=== PATIENT | male | born 1940 | race Caucasian/White ===

== ENCOUNTER 2020-11-11 14:09 | Emergency (ER) | payer OTHER, BC ==
[2020-11-11 15:03] LABS: Absolute Lymphocytes (CBC) 1.3 K/uL (0.7-4.9); Basophils % 0.7 % (0-1.3); Hematocrit 40.1 % (39.6-49.0); Lymphocytes % 14.9 % (15.3-44.8); MPV 9.3 fL (7.6-11.3); RBC Red Blood Cell Count 4.11 M/uL (4.33-5.43)
--- NOTE | 2020-11-11 15:05 | RAD REPORT ---
EXAM DESCRIPTION: RAD - Hip Left 2 View - 11/11/2020 2:51 pm CLINICAL HISTORY: PAIN, trip and fall COMPARISON: Pelvis dated 11/11/2020 FINDINGS: AP and cross-table lateral views of the left hip joint were obtained. Transverse fracture of the left femoral neck is present. Minimal impaction is seen along the medial f racture plane. Pathologic etiology is not suspected. Shaft is rotated superimposing the greater troch anter over the fracture plane. This limits ability to fully assess the lateral margin of the fracture . Intertrochanteric involvement is not likely. No AVN or focal femoral head abnormality. Lesser trochanter remains intact to the femur. Degenerative change present along superior acetabular rim. SI joint degenerative changes are present. No soft tissue abnormality. IMPRESSION: Transverse fracture left femoral neck as detailed.
--- NOTE | 2020-11-11 15:06 | RAD REPORT ---
EXAM DESCRIPTION: RAD - Pelvis - 11/11/2020 2:50 pm CLINICAL HISTORY: TRAUMA, trip and fall, pelvic and left hip pain COMPARISON: Left hip same date TECHNIQUE: AP imaging of the pelvis was obtained. FINDINGS: Lower lumbar degenerative change present without suspicion for acute lumbar compression fr acture. SI joint degenerative change present without sacral ala fractures seen. Sacral ala detail is limited by overlapping bowel. Dense arterial tree calcifications are present. Fracture of the bony pe lvis is not identifiable. Left femoral neck fracture is separately detailed. Proximal right femur sally ws no acute finding. No suspicious soft tissue finding. IMPRESSION: Left femoral neck fracture is present separately detailed on left hip report. No fracture of the bony pelvis identified.
[2020-11-11 15:23] LABS: Protime INR 0.98
[2020-11-11 15:34] LABS: Potassium 5.3 mmol/L (3.5-5.1)
--- NOTE | 2020-11-11 16:13 | EDPHYS ---
Physician Documentation [facility] Name: Michael Lozano Age: 80 yrs Sex: Male : 1940 Arrival Date: 11/11/2020 Time: 14:13 Bed 2 Private MD: ED Physician Jermaine Dubois HPI: 11/11 16:12 This 80 yrs old Male presents to ER via EMS with complaints of Hip Injury. jr8 14:55 The patient or guardian reports decreased range of motion, an injury, pain. that jr8 occurred outdoors, sustained from a fall, There is no obvious deformity, The patient is not able to ambulate. The complaints affect the L hip. Patient reports tripping over a concrete barrier and falling. Denies LOC but takes 3 baby ASA a day. NO internal rotation or deformity noted. Patient report minor point tenderness. . Historical: - Allergies: 14:19 No Known Allergies; sv - Immunization history:: Adult Immunizations up to date. - Social history:: Smoking status: . - Immunization history: Last tetanus immunization: unknown. ROS: 14:57 Cardiovascular: Negative for chest pain, palpitations, and edema, Respiratory: Negative jr8 for shortness of breath, cough, wheezing, and pleuritic chest pain, Abdomen/GI: Negative for abdominal pain, nausea, vomiting, diarrhea, and constipation, Back: Negative for injury and pain, Neuro: Negative for headache, weakness, numbness, tingling, and seizure. 14:57 MS/extremity: Positive for pain, tenderness, of the L hip. 16:12 Neck: Negative for injury, pain, and swelling. jr8 Exam: 14:58 Chest/axilla: Normal chest wall appearance and motion. Nontender with no deformity. jr8 No lesions are appreciated. Cardiovascular: Regular rate and rhythm with a normal S1 and S2. No gallops, murmurs, or rubs. Normal PMI, no JVD. No pulse deficits. Respiratory: Lungs have equal breath sounds bilaterally, clear to auscultation and percussion. No rales, rhonchi or wheezes noted. No increased work of breathing, no retractions or nasal flaring. Abdomen/GI: Soft, non-tender, with normal bowel sounds. No distension or tympany. No guarding or rebound. No evidence of tenderness throughout. Neuro: Awake and alert, GCS 15, oriented to person, place, time, and situation. Cranial nerves II-XII grossly intact. Motor strength 5/5 in all extremities. Sensory grossly intact. Cerebellar exam normal. Normal gait. 14:58 Musculoskeletal/extremity: Extremities: noted in the L hip: pain, ROM: limited active range of motion due to pain, in the left leg, Circulation is intact in all extremities. Sensation intact. 16:12 Neck: Trachea midline, no thyromegaly or masses palpated, and no cervical jr8 lymphadenopathy. Supple, full range of motion without nuchal rigidity, or vertebral point tenderness. No Meningismus. Back: No spinal tenderness. No costovertebral tenderness. Full range of motion. Skin: Warm, dry with normal turgor. Normal color with no rashes, no lesions, and no evidence of cellulitis. Vital Signs: 14:07 BP 133 / 80; Pulse 56; Resp 16; Temp 98; Pulse Ox 98% ; Pain 5/10; sv 15:02 BP 148 / 70; Pulse 63; Resp 16; Temp 98; Pulse Ox 98% ; sv 16:00 BP 152 / 60; Pulse 58; Resp 16; Pulse Ox 97% ; sv 16:30 BP 132 / 67; Pulse 52; Resp 16; Pulse Ox 96% ; sv 17:15 BP 141 / 65; Pulse 53; Resp 18; Pulse Ox 96% ; sv 18:00 BP 142 / 70; Pulse 58; Resp 16; Pulse Ox 99% ; sv 18:40 BP 152 / 59; Pulse 55; Resp 18; Pulse Ox 99% ; sv Hossein Coma Score: 14:07 Eye Response: spontaneous(4). Verbal Response: oriented(5). Motor Response: obeys sv commands(6). Total: 15. Trauma Score (Adult): 14:07 Eye Response: spontaneous(1); Verbal Response: oriented(1); Motor Response: obeys sv commands(2); Systolic BP: > 89 mm Hg(4); Respiratory Rate: 10 to 29 per min(4); [place] Score: 15; Trauma Score: 12 15:02 Eye Response: spontaneous(1); Verbal Response: oriented(1); Motor Response: obeys sv commands(2); Systolic BP: > 89 mm Hg(4); Respiratory Rate: 10 to 29 per min(4); [place] Score: 15; Trauma Score: 12 16:00 Eye Response: spontaneous(1); Verbal Response: oriented(1); Motor Response: obeys sv commands(2); Systolic BP: > 89 mm Hg(4); Respiratory Rate: 10 to 29 per min(4); [place] Score: 15; Trauma Score: 12 16:30 Eye Response: spontaneous(1); Verbal Response: oriented(1); Motor Response: obeys sv commands(2); Systolic BP: > 89 mm Hg(4); Respiratory Rate: 10 to 29 per min(4); Hossein Score: 15; Trauma Score: 12 17:15 Eye Response: spontaneous(1); Verbal Response: oriented(1); Motor Response: obeys sv commands(2); Systolic BP: > 89 mm Hg(4); Respiratory Rate: 10 to 29 per min(4); Hossein Score: 15; Trauma Score: 12 18:00 Eye Response: spontaneous(1); Verbal Response: oriented(1); Motor Response: obeys sv commands(2); Systolic BP: > 89 mm Hg(4); Respiratory Rate: 10 to 29 per min(4); [place]sein Score: 15; Trauma Score: 12 18:40 Eye Response: spontaneous(1); Verbal Response: oriented(1); Motor Response: obeys sv commands(2); Systolic BP: > 89 mm Hg(4); Respiratory Rate: 10 to 29 per min(4); Hossein Score: 15; Trauma Score: 12 MDM: 14:16 Patient medically screened. 8 15:03 Data reviewed: vital signs, nurses notes, EMS record, lab test result(s), radiologic jr8 studies. 16:11 Data interpreted: Pulse oximetry: on room air is 98 %. Interpretation: normal. jr8 Counseling: I had a detailed discussion with the patient and/or guardian regarding: the historical points, exam findings, and any diagnostic results supporting the discharge/admit diagnosis, lab results, radiology results, the need to transfer to another facility, [facility] does not immediately have the required specialist. 11/11 14:29 Order name: CBC with Diff jr8 11/11 14:29 Order name: Basic Metabolic Panel jr8 11/11 14:29 Order name: Protime (+inr) jr8 11/11 14:29 Order name: Ptt, Activated jr8 11/11 14:29 Order name: CBC with Automated Diff; Complete Time: 15:31 [facility] 11/11 14:29 Order name: Basic Metabolic Panel [facility] 11/11 14:26 Order name: XRAY Pelvis; Complete Time: 15:07 [facility] 11/11 14:26 Order name: Hip Left 2 View XRAY; Complete Time: 15:07 [facility] 11/11 14:29 Order name: IV Saline Lock; Complete Time: 15:01 [facility] 11/11 14:29 Order name: Protime (+INR); Complete Time: 15:31 [facility] 11/11 14:29 Order name: PTT, Activated Partial Thromb; Complete Time: 15:31 [facility] 11/11 16:36 Order name: SARS-COV-2 RT PCR; Complete Time: 16:56 [facility] 11/11 16:14 Order name: Mccollum; Complete Time: 16:14 sv Administered Medications: 16:07 Drug: fentaNYL (PF) 50 mcg Route: IVP; Site: right antecubital; hb 16:30 Follow up: Response: No adverse reaction; Pain is decreased; RASS: Alert and Calm (0) sv Disposition: 11/11/20 16:[address] [facility]. Diagnosis is Displaced fracture of base of neck of left femur. - Reason for transfer: Higher level of care. - Accepting physician is Dr. Nuñez. - Condition is Stable. - Problem is new. - Symptoms have improved. Addendum: 11/12/2020 19:27 Co-signature as Attending Physician, Jermaine Dubois MD I agree with the assessment and t w4 plan of care. Signatures: Dispatcher [employer] [facility] Zulema Reynoso, RN RN sv Terry Narayanan PA PA jr8 Keyonna Baxter RN RN Jermaine Dubois MD MD tw4 Corrections: (The following items were deleted from the chart) 11/11 15:48 15:08 CORONAVIRUS+MR.LAB.BRZ ordered. [facility] 18:51 16:12 11/11/2020 16:[address] [facility]. sv Diagnosis is Displaced fracture of base of neck of left femur. Reason for transfer: Higher level of care. Accepting physician is Dr. Nuñez. Condition is Stable. Problem is new. Symptoms have improved. jr8
--- NOTE | 2020-11-11 16:13 | ER ---
Nurse's Notes [facility] Name: Michael Lozano Age: 80 yrs Sex: Male : 1940 Arrival Date: 11/11/2020 Time: 14:13 Bed 2 Private MD: Diagnosis: Displaced fracture of base of neck of left femur Presentation: 11/11 14:07 Chief complaint: EMS states: pt tripped on a curb that he didn't see and hit his left sv hip up against the wall. c/o left hip pain, is unable to straighten it out without pain. Care prior to arrival: None. Mechanism of Injury: No Mechanism of Injury. Trauma event details: Injury occurred in the [facility], Injury occurred: in a public building. Injury occurred: November 11, 2020. 14:07 Acuity: MARILEE 2 sv 14:07 Method Of Arrival: EMS: [facility] sv 14:18 Coronavirus screen: Client denies travel out of the [place] in the last 14 days. At this sv time, the client does not indicate any symptoms associated with coronavirus-19. Ebola Screen: No symptoms or risks identified at this time. Initial Sepsis Screen: Does the patient meet any 2 criteria? No. Patient's initial sepsis screen is negative. Does the patient have a suspected source of infection? No. Patient's initial sepsis screen is negative. Risk Assessment: Do you want to hurt yourself or someone else? Patient reports no desire to harm self or others. Onset of symptoms was November 11, 2020. Trauma Activation: Physician: ED Physician; Name: Dr Dubois; Notified At: 14:08; Arrived At: Physician: General Surgeon; Name: ; Notified At: 14:08; Arrived At: Physician: Radiology; Name: Colette; Notified At: 14:08; Arrived At: 14:10 Physician: Respiratory; Name: ; Notified At: 14:08; Arrived At: Physician: Lab; Name: ; Notified At: 14:08; Arrived At: Historical: - Allergies: 14:19 No Known Allergies; sv - Immunization history:: Adult Immunizations up to date. - Social history:: Smoking status: . - Immunization history: Last tetanus immunization: unknown. Screenin:20 Abuse screen: Denies threats or abuse. Denies injuries from another. Nutritional sv screening: No deficits noted. Tuberculosis screening: No symptoms or risk factors identified. Fall Risk None identified. Primary Survey: 14:07 NO uncontrolled hemorrhage observed. A: The patient is alert. Airway: patent, No sv supplemental oxygen in use on arrival. Oral cavity: clear, Trachea midline. Breathing/Chest: Respiratory pattern: regular, Respiratory effort: spontaneous, unlabored, Chest inspection: symmetrical rise and fall of the chest. Circulation: Pulses: palpable right posterior tibial artery, right dorsalis pedis artery, left posterior tibial artery and left dorsalis pedis artery. Skin color: pink, Skin temperature: warm, dry. Disability Alert. Exposure/Environment: All clothing and personal items were removed. Forensic evidence collection is not deemed to be indicated at this time. Items placed in patient belonging bag. There is no evidence of uncontrolled external bleeding. No obvious injuries are noted at this time. A warming method has been applied: A warm blanket has been provided to the patient. 14:45 Reassessment Airway Airway Patent Oxygen No O2 Oral cavity Clear Trachea Midline sv Breathing/Chest Respiratory pattern Regular Respiratory effort Spontaneous Unlabored Chest inspection Symmetrical Circulation Heart tones Present Pulses Palpable Color [place] Temperature Warm Dry Disability Alert. 15:45 Reassessment Airway Airway Patent Breathing/Chest Respiratory pattern Regular hb Respiratory effort Spontaneous Unlabored Chest inspection Symmetrical Circulation Pulses Palpable Color [place] Temperature Warm Dry Disability Alert. 16:45 Reassessment Airway Oxygen No O2 Breathing/Chest Respiratory effort Spontaneous hb Unlabored Circulation Pulses Palpable Color [place] Disability Alert. Secondary Survey: 14:07 HEENT: No deficits noted. Gastrointestinal: No deficits noted. : No deficits noted. sv No signs and/or symptoms were reported regarding the genitourinary system. Musculoskeletal: Range of motion: limited in left hip. Assessment: 15:03 Reassessment: Transfer initiated with [facility] due to no ortho availability at our facility. Awaiting for call back. 15:47 Reassessment: Agusto Gonzalez, reporting coordinator states that they do have a bed for patient at [facility] pending Covid results. 16:20 Reassessment: Patient appears in no apparent distress at this time. No changes from sv previously documented assessment. Patient and/or family updated on plan of care and expected duration. Pain level reassessed. Patient is alert, oriented x 3, equal unlabored respirations, skin warm/dry/pink. 17:21 Reassessment: Patient appears in no apparent distress at this time. No changes from sv previously documented assessment. Patient and/or family updated on plan of care and expected duration. Pain level reassessed. Patient is alert, oriented x 3, equal unlabored respirations, skin warm/dry/pink. 18:49 Reassessment: Patient appears in no apparent distress at this time. Patient and/or sv family updated on plan of care and expected duration. Pain level reassessed. Patient is alert, oriented x 3, equal unlabored respirations, skin warm/dry/pink. Report given [facility]. Vital Signs: 14:07 BP 133 / 80; Pulse 56; Resp 16; Temp 98; Pulse Ox 98% ; Pain 5/10; sv 15:02 BP 148 / 70; Pulse 63; Resp 16; Temp 98; Pulse Ox 98% ; sv 16:00 BP 152 / 60; Pulse 58; Resp 16; Pulse Ox 97% ; sv 16:30 BP 132 / 67; Pulse 52; Resp 16; Pulse Ox 96% ; sv 17:15 BP 141 / 65; Pulse 53; Resp 18; Pulse Ox 96% ; sv 18:00 BP 142 / 70; Pulse 58; Resp 16; Pulse Ox 99% ; sv 18:40 BP 152 / 59; Pulse 55; Resp 18; Pulse Ox 99% ; sv Hossein Coma Score: 14:07 Eye Response: spontaneous(4). Verbal Response: oriented(5). Motor Response: obeys sv commands(6). Total: 15. Trauma Score (Adult): 14:07 Eye Response: spontaneous(1); Verbal Response: oriented(1); Motor Response: obeys sv commands(2); Systolic BP: > 89 mm Hg(4); Respiratory Rate: 10 to 29 per min(4); Hossein Score: 15; Trauma Score: 12 15:02 Eye Response: spontaneous(1); Verbal Response: oriented(1); Motor Response: obeys sv commands(2); Systolic BP: > 89 mm Hg(4); Respiratory Rate: 10 to 29 per min(4); [place] Score: 15; Trauma Score: 12 16:00 Eye Response: spontaneous(1); Verbal Response: oriented(1); Motor Response: obeys sv commands(2); Systolic BP: > 89 mm Hg(4); Respiratory Rate: 10 to 29 per min(4); Hossein Score: 15; Trauma Score: 12 16:30 Eye Response: spontaneous(1); Verbal Response: oriented(1); Motor Response: obeys sv commands(2); Systolic BP: > 89 mm Hg(4); Respiratory Rate: 10 to 29 per min(4); [place] Score: 15; Trauma Score: 12 17:15 Eye Response: spontaneous(1); Verbal Response: oriented(1); Motor Response: obeys sv commands(2); Systolic BP: > 89 mm Hg(4); Respiratory Rate: 10 to 29 per min(4); [place] Score: 15; Trauma Score: 12 18:00 Eye Response: spontaneous(1); Verbal Response: oriented(1); Motor Response: obeys sv commands(2); Systolic BP: > 89 mm Hg(4); Respiratory Rate: 10 to 29 per min(4); [place] Score: 15; Trauma Score: 12 18:40 Eye Response: spontaneous(1); Verbal Response: oriented(1); Motor Response: obeys sv commands(2); Systolic BP: > 89 mm Hg(4); Respiratory Rate: 10 to 29 per min(4); [place] Score: 15; Trauma Score: 12 ED Course: 14:13 Patient arrived in ED. sv 14:16 Triage completed. sv 14:16 Terry Narayanan PA is PHCP. jr8 14:16 Jermaine Dubois MD is Attending Physician. jr8 14:17 Zulema Reynoso RN is Primary Nurse. sv 14:19 Nurse Practitioner and/or Physician Rn Forensic to see patient. sv 14:19 Arm band placed on. sv 14:20 Patient has correct armband on for positive identification. Placed in gown. Bed in low sv position. Call light in reach. Side rails up X2. Pulse ox on. NIBP on. Door closed. Head of bed elevated. 14:20 Patient maintains SpO2 saturation greater than 95% on room air. sv 14:20 Thermoregulation: warm blanket given to patient. sv 14:37 X-ray(s) taken. sv 14:44 Hip Left 2 View XRAY Sent. sv 14:44 XRAY Pelvis Sent. sv 14:50 XRAY Pelvis In Process Unspecified. EDMS 14:51 Hip Left 2 View XRAY In Process Unspecified. EDMS 15:01 Protime (+inr) Sent. sv 15:01 Ptt, Activated Sent. sv 15:01 Basic Metabolic Panel Sent. sv 15:01 CBC with Diff Sent. sv 15:23 COVID swab sent to lab. sv 16:14 Mccollum cath inserted, using sterile technique, 16 Fr., by ED staff, balloon inflated, to sv gravity drainage, returned clear yellow urine. Patient tolerated well. 17:43 No provider procedures requiring assistance completed. Patient transferred, IV remains sv in place. intact. Administered Medications: 16:07 Drug: fentaNYL (PF) 50 mcg Route: IVP; Site: right antecubital; hb 16:30 Follow up: Response: No adverse reaction; Pain is decreased; RASS: Alert and Calm (0) sv Intake: 14:07 PO: 0ml; Total: 0ml. sv 15:02 PO: 0ml; Total: 0ml. sv 16:00 PO: 0ml; Total: 0ml. sv 16:30 PO: 0ml; Total: 0ml. sv 17:15 PO: 0ml; Total: 0ml. sv 18:00 PO: 0ml; Total: 0ml. sv 18:40 PO: 0ml; Total: 0ml. sv Output: 14:07 Urine: 0ml; Total: 0ml. sv 15:02 Urine: 0ml; Total: 0ml. sv 16:00 Urine: 0ml; Total: 0ml. sv 16:30 Urine: 0ml; Total: 0ml. sv 17:15 Urine: 0ml; Total: 0ml. sv 18:00 Urine: 0ml; Total: 0ml. sv 18:40 Urine: 0ml; Total: 0ml. sv Outcome: 16:12 ER care complete, transfer ordered by jr8 16:51 Patient's length of stay in the Emergency Department was greater than 2 hours. awaiting hb acceptance and transfer to higher level of carePatient's length of stay extended due to 17:43 Transferred by ground EMS to [facility], Transfer form completed. sv X-rays sent w/ patient. Note: [facility] Condition: stable 17:43 Instructed on the need for transfer. 18:51 Patient left the ED. sv Signatures: Dispatcher [employer] Zulema Younger RN Slime Azul RN RN Terry Narayanan PA PA jr8 Keyonna Baxter RN RN Corrections: (The following items were deleted from the chart) 16:20 15:02 Pulse 63bpm; Resp 16bpm; Pulse Ox 98%; Temp 98F; sv sv
[2020-11-11] MEDS ORDERED: LIDOCAINE VISCOUS 2% SOLN 15 ML UDC ONE (16:17)
[2020-11-11] MEDS ORDERED: FENTANYL CITR 100 MCG/2 ML ONE (16:17)
[2020-11-11 18:58] VITALS: TEMP 98
[2020-11-11 19:03] VITALS: O2SAT 99
[2020-11-11 19:04] VITALS: BP 152/59
== END 2020-11-11 18:51 | disposition short-term general hospital (02) ==
LOC: ER 14:09
DX: S72.042A Displaced fracture of base of neck of left femur, initial encounter for closed fracture (principal); W01.198A Fall on same level from slipping, tripping and stumbling with subsequent striking against other object, initial encounter; Y93.01 Activity, walking, marching and hiking; Y92.89 Other specified places as the place of occurrence of the external cause; Z20.822 Contact with and (suspected) exposure to COVID-19
CPT/HCPCS: 85025; 80048; 36415; 85610; 85730; 72170; 73502; 51702; 96374; 99285; U0003; J3010